=== PATIENT | male | born 1985 | race Caucasian/White ===

== ENCOUNTER 2025-01-20 15:24 | Inpatient (IN) | payer MEDICAID, OTHER, SELFPAY ==
--- OUTSIDE RECORDS SUMMARY | 2025-01-20 15:33 | XMS_ITS | Clinical Summary ---
Author Organization [facility] Address [address] [place] [address] Care Team Providers Care Container Washer Machine Name Role Phone No, Pcp MD Primary Care Provider Unavailabl e Allergies No known active allergies Medications pantoprazole (PROTONIX) 40 MG delayed release tablet Take 1 tablet (40 mg total) by mouth daily at 6:30 am. 30 tablet 03/23/2018 Active folic acid (FOLVITE) 1 MG tablet Take 1 tablet (1 mg total) by mouth once daily. 30 tablet 06/08/2018 Active multivitamin w/minerals (CENTRUM COMPLETE) 18-400 mg-mcg tablet Take 1 tablet by mouth once daily. 30 tablet 06/08/2018 Active thiamine 100 mg tablet Take 1 tablet (100 mg total) by mouth once daily. 30 tablet 06/08/2018 Active ondansetron (ZOFRAN) 4 MG tablet Take 1 tablet (4 mg total) by mouth as needed (Nausea, vomiting). 5 tablet 06/07/2018 Active Active Problems Problem Noted Date Diagnosed Date Alcohol withdrawal syndrome without complication 06/05/2018 Obesity 03/20/2018 Acute alcoholic gastritis without hemorrhage Immunizations Name Administration Dates Next Due Influenza Quadrivalent Preservative Free (IM) Social History Tobacco Use Types Packs/Day Years Used Date Smoking Tobacco: Some Days Cigarettes Smokeless Tobacco: Never Tobacco Cessation:Ready to Q uit: No; Counseling Given: Yes Alcohol Use Standard Drinks/Week Comments Yes 0 (1 standard drink = 0.6 oz pur e alcohol) drinks vodka Sex and Gender Information Value Date Recorded Sex Assigned at Not on file Legal Sex Male 11:45 AM EST Gender Identity Not on file Sexual Orientation Not on file Last Filed Vital Signs Vital Sign Reading Time Taken Comments Blood Pressure 124/86 06/07/2018 5:24 AM EST Pulse 81 06/07/2018 5:24 AM EST Temperature 37.4 C (99.3 F) 06/07/2018 5:24 AM EST Respiratory Rate 18 06/07/2018 5:24 AM EST Oxygen Saturation 95% 06/07/2018 5:24 AM EST Inhaled Oxygen Concentration - - Weight 74.6 kg (164 lb 6.4 oz) 06/07/2018 7:10 A M EST Height 154.9 cm (5' 1 ) 06/05/2018 4:16 AM EST Body Mass Index 31.06 06/05/2018 4:16 AM EST Plan of Treatment Not on file Advance Directives For more information, please contact: [phone] * Full Code (Latest Code Status on File) Date Activated Date Inactivated Comments 06/05/2018 2:13 PM * Full Code Date Activated Date Inactivated Comments 03/19/2018 2:07 AM 06/05/2018 4:09 AM Care Teams Container Washer Machine Relationship Specialty Start Date End Date No, MD Hannah No Address [place] [address] PCP - General 06/04/18
[2025-01-20 16:39] VITALS: BMI 39.5
[2025-01-20 16:40] VITALS: BP 125/70; PULSE 85; RESP 18; TEMP 37.1; O2SAT 95
--- NOTE | 2025-01-20 18:00 | PC.ADMIT ---
Pt is a 39-year-old male with a hx of HTN, alcohol use disorder AUD (in remission for 5 years until recent recurrence), etoh-withdrawal sezures, and alcoholic gastritis who was brought to on a 12B from the [facility] for the treatment of SI statements in the context of intoxication. Precipitants of his recurrence and SI statements include cheating on him and moving states. After 5 years of sobriety pt drank half a bottle of vodka for [address] Jean Baptiste no CIWA necessary pt has already detoxed. During the admission assessment pt is calm, cooperative, and pleasant. He reports anxiety over his job saying why did they bring me here? I have no supports here and I have to go to work. I'll get fired if I don't go back to work . Pt explained to the doctor that he only made those SI statements in the context of drinking because he is - in his own words- an alcoholic and cannot control his drinking once he starts. He stated that prior to this he was sober for 5 years - I did it all alone, I didn't take medications, or go to meetings or adventist . Pt accepted addiction consult as he states I just need to stop drinking again . He is otherwise denying SI/HI/AH/VH. He denies depression and/or anxiety. Skin completed with no significant findings. Vitals WNL. He declined to sign himself in as he wants to leave here te.
[2025-01-20 20:00] VITALS: BP 132/79; PULSE 113; RESP 16; TEMP 37; O2SAT 97
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
[2025-01-21 07:56] LABS: Hemoglobin A1C 149.3177 umol/L; Total Hemoglobin (HGBA1C) 3649.8604 umol/L
[2025-01-21 08:00] VITALS: BP 125/66; PULSE 105; RESP 18; TEMP 36.9; O2SAT 98
[2025-01-21 08:13] LABS: Alanine Aminotransferase 283 U/L (0-40); Albumin Level 3.7 g/dL (3.5-5.0); Alkaline Phosphatase 83 U/L (39-117); Anion Gap 12 (12-20); Aspartate Amino Transferase 183 U/L (5-37); Blood Urea Nitrogen 13 mg/dL (9-16); Calcium 8.8 mg/dL (8.4-10.2); Carbon Dioxide 25 mmol/L (22-29); Chloride 103 mmol/L (96-108); Cholesterol 201 mg/dL (<200); Creatinine Clr Calc Pharmacy 129.0; Estimated Glomerular Filt Rate > 60; HDL Cholesterol 48 mg/dL (>40); Potassium 4.4 mmol/L (3.3-5.1); Sodium 136 mmol/L (135-145); Total Protein 6.9 g/dL (6.5-8.0); Triglycerides 150 mg/dL (<150)
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
[2025-01-21 19:51] VITALS: BP 128/71; PULSE 106; TEMP 37.1; O2SAT 94
[2025-01-22 08:20] VITALS: BP 109/62; PULSE 64; TEMP 36.6; O2SAT 97
--- NOTE | 2025-01-22 10:36 | HO.PSYCHPN ---
Subjective Subjective Reason For Visit: SI Diagnostics Vital Signs (24Hr): Vital Signs - 24 hr 01/21/25 19:51 01/22/25 08:20 Temperature 98.8 F 97.8 F Pulse Rate 106 H 64 Blood Pressure 128/71 109/62 Pulse Oximetry 94 97 Oxygen Delivery Method Room Air Room Air BMI result Body Mass Index 39.5 Labs 01/21/25 07:34 Labs: Laboratory Results - last 48 hr 01/21/25 07:34 Sodium 136 Potassium 4.4 Chloride 103 Carbon Dioxide 25 Anion Gap 12 BUN 13 Creatinine 0.79 Estim Creat Clear Calc 129.0 Estimated GFR > 60 Random Glucose 114 Estimat Average Glucose 123 Hemoglobin A1c % 5.9 Calcium 8.8 Total Bilirubin 0.5 AST 183 H ALT 283 H Alkaline Phosphatase 83 Total Protein 6.9 Albumin 3.7 Triglycerides 150 H Cholesterol 201 H LDL Cholesterol, Calc 123 H HDL Cholesterol 48 Medications Medications Current Medications Acetaminophen (Acetaminophen 325 Mg Tablet) 650 mg PO Q6H PRN PRN Reason: Headache/Pain, Scale 1-10 Al Hydroxide/Mg Hydroxide (Magnesium Hydrox/Alum Hydrox 30 Ml Oral.Susp) 30 ml PO Q6H PRN PRN Reason: Heartburn/Nausea Hydroxyzine HCl (Hydroxyzine Hcl 25 Mg Tablet) 25 mg PO Q6H PRN PRN Reason: mild anxiety Last Admin: 01/21/25 21:04 Dose: 25 mg Magnesium Hydroxide (Milk Of Magnesia 30 Ml Oral.Susp) 30 ml PO DAILY PRN PRN Reason: Constipation Melatonin (Melatonin 3 Mg Tablet) 6 mg PO BEDTIME PRN PRN Reason: Insomnia Last Admin: 01/21/25 21:04 Dose: 6 mg Nicotine (Nicotine 21 Mg Patch.Td24) 21 mg TRANSDERMA DAILY PRN PRN Reason: smoking cessation Trazodone HCl (Trazodone Hcl 50 Mg Tablet) 50 mg PO BEDTIME MRX1 PRN PRN Reason: Insomnia Last Admin: 01/21/25 22:56 Dose: 50 mg Allergies Allergies Allergy/AdvReac Type Severity Reaction Status Date / Time No Known Allergies Allergy Verified 01/20/25 17:01 Assessment & Plan Assessment & Plan (1) Alcohol use disorder: Status: Acute Code(s): F10.90 - Alcohol use, unspecified, uncomplicated (2) Adjustment disorder with mixed disturbance of emotions and conduct: Status: Acute Code(s): F43.25 - Adjustment disorder with mixed disturbance of emotions and conduct Plan Admit, Section XIIB to 01/25, 15 minute checks Collateral Contact Diagnostics as needed Pt declines medication, denies depression, asks for DC Continue to monitor for detox Observe, process pt's relapse Time Spent With Patient Time: Total time managing care of this patient today ____ minutes.
[2025-01-22 20:00] VITALS: BP 134/83; PULSE 85; TEMP 37.2; O2SAT 98
[2025-01-23 08:00] VITALS: BP 117/64; PULSE 65; RESP 16; TEMP 37; O2SAT 97
--- NOTE | 2025-01-23 13:23 | PM.PSYDC ---
DS: Providers Provider Date of admission: 01/20/25 15:24 Primary care physician: Unknown Physician Consults: 01/20/25 17:25 Consult to Hospitalist Routine Comment: Consulting Provider: [facility] Hospitalists Reason For Exam: admission physical DS: Diagnosis Discharge Diagnosis (1) Alcohol use disorder: Status: Acute (2) Adjustment disorder with mixed disturbance of emotions and conduct: Status: Acute DS: Medications Discharge Medications Home Medications: Home Medications ?Medication ?Instructions ?Recorded ?Confirmed folic acid 1 mg tablet 1 mg PO DAILY 01/20/25 01/20/25 lisinopril 10 mg tablet 10 mg PO BEDTIME 01/20/25 01/20/25 magnesium oxide 400 mg PO DAILY 01/20/25 01/20/25 melatonin 3 mg tablet 6 mg PO DAILY 01/20/25 01/20/25 Previous Rx's ?Medication ?Instructions ?Recorded omeprazole 20 mg capsule,delayed 20 mg PO BID@0630,1630 #0 caps 01/23/25 release Data Data Completed and Pending Completed studies during hospitalization [Text1]: 01/21/25 07:34 Sodium 136 Potassium 4.4 Chloride 103 Carbon Dioxide 25 Anion Gap 12 BUN 13 Creatinine 0.79 Estim Creat Clear Calc 129.0 Estimated GFR > 60 Random Glucose 114 Estimat Average Glucose 123 Hemoglobin A1c % 5.9 Calcium 8.8 Total Bilirubin 0.5 AST 183 H ALT 283 H Alkaline Phosphatase 83 Total Protein 6.9 Albumin 3.7 Triglycerides 150 H Cholesterol 201 H LDL Cholesterol, Calc 123 H HDL Cholesterol 48 DS: Summary Time Spent with Patient Time attestation: Total time managing care of this patient today ____ minutes. Discharge Plan Discharge Anticipated Discharge Date/Time: 01/23/25 11:00 Patient Disposition: Home, Self-Care Discharge Diagnosis: Adjustment reaction, mixed Alcohol Use Disorder Referrals: Physician,Unknown J [Primary Care Provider, Medical] - 1 Week Discharge Medications: New omeprazole 20 mg Capsule,Delayed Release(Dr/Ec) 20 mg PO BID@0630,1630 Qty: 0 0RF Continued melatonin 3 mg Tablet 6 mg PO DAILY lisinopril 10 mg Tablet 10 mg PO BEDTIME folic acid 1 mg Tablet 1 mg PO DAILY magnesium oxide 400 mg magnesium Tablet 400 mg PO DAILY Discharge Orders: Discharge Order (Routine); Ordered 01/23/25 Ordered By: Nelsy M Schley-Wonkka Diet: Advance to usual diet Activity on Discharge: As tolerated Stand Alone Forms: Patient Portal Discharge page, Community Support Print Language: Sami Care Plan Goals: Abstinence from Alcohol Mood and Behavioral Stabilization Health Concerns: Abstinence from Alcohol Mood and Behavioral Stabilization Plan of Treatment: Pt will return home today He declined treatment at this time He denies NAINA,LEVI,STAN, VH There are no symptoms of acute psychosis, madelyn We have discussed his discharge with his family who will offer support in sobriety. They have no current concerns about his safety-they live and work with the patient and will provide support and supervision Assessment: No SI, HI,AH, VH No sx of madelyn or psychosis Discharge Date/Time: 01/23/25 11:21
== END 2025-01-23 11:21 | disposition home or self-care (01) | DRG 755 ==
PROVIDERS: Admitting Provider Psychiatry & Neurology Psychiatry; Visit Provider Psychiatry & Neurology Psychiatry
DX: F43.25 Adjustment disorder with mixed disturbance of emotions and conduct (principal); R45.851 Suicidal ideations; K21.9 Gastro-esophageal reflux disease without esophagitis; E66.9 Obesity, unspecified; F10.90 Alcohol use, unspecified, uncomplicated; Z71.3 Dietary counseling and surveillance; Z68.39 Body mass index [BMI] 39.0-39.9, adult; Z79.899 Other long term (current) drug therapy
CPT/HCPCS: 36415; 80053; 80061; 83036

== ENCOUNTER → 2025-01-20 15:24 | Outpatient (BNV) | payer MEDICAID, SELFPAY | PROVIDERS: Admitting Provider Psychiatry & Neurology Psychiatry; Visit Provider Clinical Nurse Specialist Psychiatric/Mental Health, Adult | DX: F10.90 Alcohol use, unspecified, uncomplicated (principal); F43.25 Adjustment disorder with mixed disturbance of emotions and conduct | CPT/HCPCS: 90792 ==

== ENCOUNTER → 2025-01-20 15:24 | Outpatient (BNV) | payer SELFPAY | PROVIDERS: Admitting Provider Psychiatry & Neurology Psychiatry; Visit Provider Nurse Practitioner Family | DX: K21.9 Gastro-esophageal reflux disease without esophagitis (principal) | CPT/HCPCS: 99223 ==